=== PATIENT | female | born 1975 | race Caucasian/White ===

== ENCOUNTER 2016-09-04 20:01 | Emergency (ER) | payer OTHER ==
[2016-09-04] MEDS ORDERED: Ondansetron 4 MG/2 ML SDV IVPUSH ONE (20:37)
[2016-09-04] MEDS ORDERED: Sodium Chloride 0.9% 1,000 ML IV ONE (20:37)
--- NOTE | 2016-09-04 20:45 | EDM.PDOC ---
ED HPI GI/ABDOMINAL - General Chief Complaint: Gastrointestinal Problem Stated Complaint: COUGH FEVER VOMITING Time Seen by Provider: 09/04/16 20:06 Source of Information: Reports: Patient, Family (), RN notes reviewed History Limitations: Reports: No limitations - History of Present Illness INITIAL COMMENTS - FREE TEXT/NARRATIVE: The patient states that she was seen at the [facility] this past Tuesday, because of bilateral ear pain. She was told, to her surprise, that she did not have an ear infection, but that, rather, she had a sinus infection. She was prescribed Augmentin 875 mg and has been taking it twice a day since the evening of 08/31/2016. She states that she was doing well up until this morning, when she developed nausea and vomiting. She has been vomiting all day. No diarrhea. No fever. No sick contacts. No recent spoiled food. No recent travel. No prior similar symptoms. Of note, the patient states that when seen on 08/31/2016, she has not had a fever , purulent discharge, facial pain, erythema, or tenderness. No prior CT scan of her sinuses, and no prior ENT evaluation. - Related Data Allergies/ADRs: Allergies Allergy/AdvReac Type Severity Reaction Status Date / Time cetirizine [From Zyrtec] Allergy Shortness Verified 09/04/16 20:45 of Breath gluten Allergy Nausea and Verified 09/04/16 20:45 Vomiting Home Meds: Home Meds Ondansetron [Zofran ODT] 4 mg PO Q8H PRN #5 tab.dis 09/04/16 [Rx] Past Medical History HEENT History: Reports: Allergic rhinitis Gastrointestinal History: Reports: Celiac disease (Suspected, never tested) - Past Surgical History Female Surgical History: Reports: section (x 1), Hysterectomy ( partial, 2013) Social & Family History - Tobacco Use Smoking Status *Q: Current Every Day Smoker Years of Tobacco use: 20 Packs/Tins Daily: 0.5 - Caffeine Use Caffeine Use: Reports: Coffee - Alcohol Use Alcohol Use History: Yes Alcohol Use Frequency: Rarely - Recreational Drug Use Recreational Drug Use: No - Living Situation & Occupation Living situation: Reports: , with spouse 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) ED ROS GENERAL - Review of Systems Review Of Systems: See Below Constitutional: Reports: no symptoms HEENT: Reports: No symptoms Respiratory: Reports: No Symptoms Cardiovascular: Reports: No symptoms Endocrine: Reports: no symptoms GI/Abdominal: Reports: No symptoms : Reports: no symptoms Musculoskeletal: Reports: no symptoms Skin: Reports: no symptoms Neurological: Reports: No Symptoms Psychiatric: Reports: No symptoms Hematologic/Lymphatic: Reports: no symptoms Immunologic: Reports: no symptoms ED EXAM, GI/ABD - Physical Exam Exam: See Below Exam Limited By: No limitations General Appearance: alert, WD/WN, no apparent distress Eyes: bilateral: normal appearance, EOMI Ears: normal external exam, normal canal, hearing grossly normal, normal TMs Nose: normal inspection, no blood, other (Mild bilateral nasal mucosal edema. No purulent drainage.) Throat/Mouth: Normal inspection, Normal lips, Normal teeth, Normal gums, Normal oropharynx, Normal voice, No airway compromise Head: atraumatic, normocephalic Neck: normal inspection, supple, non-tender, full range of motion. No: lymphadenopathy (L), lymphadenopathy (R) Respiratory/Chest: no respiratory distress, lungs clear, normal breath sounds, no accessory muscle use, chest non-tender Cardiovascular: normal peripheral pulses, regular rate, rhythm, no edema, no gallop, no JVD, no murmur, no rub GI/Abdominal: normal bowel sounds, soft, non tender, no organomegaly, no distention, no abnormal bruit, no mass Back Exam: normal inspection, full range of motion, NT Extremities: normal inspection, normal range of motion, non-tender, normal capillary refill, no pedal edema Neurological: alert, oriented, normal cognition, no motor/sensory deficits Psychiatric: normal affect Skin Exam: Warm, Dry, Intact, Normal color, No rash Lymphatic: no adenopathy Course - Vital Signs Last Recorded V/S: Last Vital Signs Temp 36.5 C 09/04/16 20:08 Pulse 73 09/04/16 20:08 Resp 20 09/04/16 20:08 BP 129/87 09/04/16 20:08 Pulse Ox 100 09/04/16 20:08 - Orders/Labs/Meds Orders: Active Orders 24 hr Category Date Time Status Sodium Chloride 0.9% [Normal Saline] 1,000 ml Med 09/04/16 20:37 Active IV ONETIME Medication Orders Sodium Chloride (Normal Saline) 1,000 mls @ 1,000 mls/hr IV ONETIME ONE Stop: 09/04/16 21:36 Last Admin: 09/04/16 20:45 Dose: 1,000 mls/hr Labs: Laboratory Tests 09/04/16 09/04/16 Range/Units 20:13 20:13 WBC 8.02 (3.98-10.04) K/mm3 RBC 4.87 (3.98-5.22) M/mm3 Hgb 15.4 (11.2-15.7) gm/L Hct 45.5 H (34.1-44.9) % MCV 93.4 (79.4-94.8) fl MCH 31.6 (25.6-32.2) pg MCHC 33.8 (32.2-35.5) g/dl RDW Std Deviation 45.3 (36.4-46.3) fL Plt Count 223 (182-369) K/mm3 MPV 10.8 (9.4-12.3) fl Neutrophils % (Manual) 74 H (40-60) % Band Neutrophils % 0 (0-10) % Lymphocytes % (Manual) 24 (20-40) % Atypical Lymphs % 0 % Monocytes % (Manual) 2 (2-10) % Eosinophils % (Manual) 0 L (0.7-5.8) % Basophils % (Manual) 0 L (0.1-1.2) Platelet Estimate Adequate RBC Morph Comment Normal Sodium 142 (136-145) mEq/L Potassium 4.0 (3.5-5.1) mEq/L Chloride 106 (98-107) mEq/L Carbon Dioxide 27 (21-32) mEq/L Anion Gap 13.0 (5-15) BUN 10 (7-18) mg/dL Creatinine 0.8 (0.55-1.02) mg/dL Est Cr Clr Drug Dosing 91.47 mL/min Estimated GFR (MDRD) > 60 (>60) mL/min BUN/Creatinine Ratio 12.5 L (14-18) Glucose 104 (74-106) mg/dL Calcium 9.4 (8.5-10.1) mg/dL Total Bilirubin 1.0 (0.2-1.0) mg/dL AST 12 L (15-37) U/L ALT 20 (14-59) U/L Alkaline Phosphatase 43 L (46-116) U/L C-Reactive Protein < 0.2 (<1.0) mg/dL Total Protein 7.2 (6.4-8.2) g/dl Albumin 4.0 (3.4-5.0) g/dl Globulin 3.2 gm/dL Albumin/Globulin Ratio 1.3 (1-2) Meds: Medications Generic Name Dose Route Start Last Admin Trade Name Freq PRN Reason Stop Dose Admin Sodium Chloride 1,000 mls @ 1,000 mls/hr 09/04/16 20:37 09/04/16 20:45 Normal Saline IV 09/04/16 21:36 1,000 mls/hr ONETIME ONE Administration Discontinued Medications Generic Name Dose Route Start Last Admin Trade Name Freq PRN Reason Stop Dose Admin Ondansetron HCl 8 mg 09/04/16 20:37 09/04/16 20:46 Zofran IVPUSH 09/04/16 20:38 8 mg ONETIME ONE Administration - Re-Assessments/Exams Free Text/Narrative Re-Assessment/Exam: 09/04/16 21:18 Test results discussed with the patient and her . Today's workup is unremarkable. As her WBC count is not elevated, and her CRP is undetectably low , the patient's symptoms are more likely than not due to an adverse reaction to the Augmentin, as opposed to viral gastritis. The patient states that she is feeling well, following 1 L of normal saline and 8 mg of IV Zofran. I will discharge her home with an e-prescription for Zofran, and I will recommend over- the-counter treatment for sinusitis. She has thrown her Augmentin into the trash. Departure - Departure Time of Disposition: 21:19 Disposition: Home, Self-Care 01 Condition: fair Clinical Impression: Gastritis, Nausea & vomiting, Sinusitis Referrals: PCP,None [Primary Care Provider] - Leena Frias PA-C [Physician Home Improvement Advisor] - Forms: ED Department Discharge Additional Instructions: You were seen in the emergency room tonight for nausea and vomiting all day. Workup in the ER included blood work. Your entire workup is normal, and suggests that the cause of your vomiting is related to the Augmentin that you have been taking, as opposed to a bacterial or viral intestinal infection. We are recommending that you discontinue the Augmentin. You have thrown it into the trash. You have been started on the anti-nausea medicine Zofran. Dissolve one tablet on your tongue up to every 8 hours, as needed for nausea/vomiting. We recommend that you take a bland diet, such as oatmeal, rice, bananas, applesauce, etc., for the next 2-3 days. Stay adequately hydrated. For treatment of your sinusitis, we recommend you purchase [id number] oxymetazoline nasal spray in a "pump mist" bottle. Ask your pharmacist to help you find it if you are having trouble. [place] one spray up each nostril, wait 5 minutes, then spray a second spray up each nostril. Repeat this every 12 hours for a maximum of 5 days. We also recommend that you purchase [id number] nasal saline spray in a pressurized canister. It is important that the saline does not have a preservative in it. [place] this up each nostril many times per day. Followup with Leena Frias in the clinic as needed. If any other problems, please do not hesitate to return to the ER. - My Orders Last 24 Hours: My Active Orders 09/04/16 20:37 Sodium Chloride 0.9% [Normal Saline] 1,000 ml IV ONETIME - Assessment/Plan Last 24 Hours: My Active Orders 09/04/16 20:37 Sodium Chloride 0.9% [Normal Saline] 1,000 ml IV ONETIME
[2016-09-05 06:17] VITALS: BP 130/80
== END 2016-09-04 21:45 | disposition home or self-care (01) ==
LOC: JD.ED 20:01
DX: K29.70 Gastritis, unspecified, without bleeding (principal); J32.9 Chronic sinusitis, unspecified; F17.210 Nicotine dependence, cigarettes, uncomplicated; Z88.8 Allergy status to other drugs, medicaments and biological substances
CPT/HCPCS: 36415; 80053; 85025; 86140; 96374; 99283; J2405; J7040; 99284

== ENCOUNTER 2022-08-02 21:16 | Emergency (ER) | payer BC, OTHER ==
[2022-08-02] MEDS ORDERED: Metoclopramide 10 MG/2 ML SDV IM ONE (21:37)
[2022-08-02] MEDS ORDERED: Ketorolac 30 MG/ML SDV IM ONE (21:37)
[2022-08-02] MEDS ORDERED: HYDROmorphone 0.5 MG/0.5 ML Syringe IM ONE (21:38)
[2022-08-02] MEDS ORDERED: Sodium Chloride 0.9% 10 ML Syringe FLUSH PRN (23:03)
[2022-08-02] MEDS ORDERED: levETIRAcetam 500 MG in Sodium Chloride 0.9% 100 ML IV ONE (23:04)
[2022-08-02] MEDS ORDERED: Pantoprazole 40 MG Vial IVPUSH ONE (23:04)
[2022-08-02] MEDS ORDERED: Dexamethasone 10 MG/ML SDV IVPUSH ONE (23:04)
[2022-08-02 23:44] LABS: ESTIMATED GFR 90 mL/min (>60)
[2022-08-03 02:21] VITALS: BP 96/67; PULSE 59
== END 2022-08-03 02:33 ==
LOC: JD.ED 21:16
DX: G93.89 Other specified disorders of brain (principal); Z72.0 Tobacco use; Z88.1 Allergy status to other antibiotic agents; Z91.018 Allergy to other foods
CPT/HCPCS: 36415; 70450; 80053; 85025; 86140; 96365; 96372; 96375; 99284; C9113; J1100; J1885; J1953; J2765; 99285